=== PATIENT | female | born 1995 | race African-American/Black ===

== ENCOUNTER 2024-06-09 09:52 | Outpatient (REF) | payer MEDICAID, SELFPAY ==
[2024-06-09 14:23] LABS: MANUAL DIFF FLAG NO
[2024-06-09 14:33] LABS: Basophils Absolute Auto 0.1 X10*3/uL (0.0-0.2); Basophils Percent Auto 0.6 % (0-2); Eosinophils Absolute Auto 0.1 X10*3/uL (0.0-0.4); Eosinophils Percent Auto 1.1 % (0-4); Hematocrit 35.8 % (37.0-47.0); Hemoglobin 11.9 g/dl (12.0-16.0); Imm Gran Abs Auto 0.01 X10*3/uL (0.00-0.03); Imm Gran Pct Auto 0.1 % (0.0-0.4); Lymphocytes Absolute Auto 3.1 X10*3/uL (1.2-4.9); Mean Corpuscular HGB Conc 33.2 g/dl (31.0-35.0); Mean Corpuscular Hemoglobin 31.1 pg (27.0-33.0); Mean Corpuscular Volume 93.5 fL (80.0-98.0); Mean Platelet Volume 9.3 fL (9.4-12.3); Monocytes Absolute Auto 0.4 X10*3/uL (0.1-1.2); Monocytes Percent Auto 5.1 % (2-11); Neutrophils Absolute Auto 4.5 x10*3/uL (2.0-8.3); Neutrophils Percent Auto 55.1 % (45-73); Platelet Count 348 X10*3/uL (160-400); Red Blood Count 3.83 X10*6/uL (4.20-5.50); Red Cell Distribution Width 12.5 % (11.0-16.0); White Blood Count 8.2 X10*3/uL (4.8-10.8)
[2024-06-09 14:54] LABS: Alanine Aminotransferase 18 U/L (0-31); Albumin Level 4.3 g/dL (3.5-5.0); Alkaline Phosphatase 47 U/L (39-117); Anion Gap 10 (12-20); Aspartate Amino Transferase 18 U/L (5-31); Bilirubin Total 0.3 mg/dL (0.0-1.0); Blood Urea Nitrogen 13 mg/dL (9-16); Calcium 9.6 mg/dL (8.4-10.2); Carbon Dioxide 23 mmol/L (22-29); Chloride 111 mmol/L (96-108); Estimated Glomerular Filt Rate > 60; Glucose Random 87 mg/dL (60-115); Iron 53 mcg/dL (30-160); Percent Iron Saturation 20 % (15-50); Potassium 4.1 mmol/L (3.3-5.1); Sodium 140 mmol/L (135-145); Total Iron Binding Capacity 270 mcg/dL (228-428); Total Protein 6.8 g/dL (6.5-8.0); Unsaturated Iron Binding 217 ug/dL
[2024-06-10 08:03] LABS: Syphilis Screen Nonreactive (Nonreactive)
[2024-06-10 08:11] LABS: HIV AB/AG Nonreactive (Nonreactive); HIV Num 1 0.03 S/CO (0.00-0.99); ~HepC Num1 0.11 S/CO (0.00-0.79); ~Hepatitis C Antibody Nonreactive (Nonreactive)
== END 2024-06-09 09:53 | disposition home or self-care (01) ==
LOC: HO.CHCLDS 09:52
PROVIDERS: Visit Provider Family Medicine
DX: H91.90 Unspecified hearing loss, unspecified ear (principal)
CPT/HCPCS: 36415; 80053; 83540; 84443; 85025; 86780; 86803; 87389

== ENCOUNTER 2025-03-08 09:57 | Outpatient (REF) | payer MEDICAID, SELFPAY ==
--- OUTSIDE RECORDS SUMMARY | 2025-03-08 10:33 | XMS_ITS | Encounter Summary ---
Author Organization [employer] Address [address] [facility] [address] [place] [address] Care Team Providers Care Lead Caregiver Name Role Phone Angie Kilpatrick MD Primary Care Provider Reason for Visit * Reason Onset Date Comments Appointment Request 06/01/2024 Encounter Details Date Type Department Care Team ([facility] st Contact Info) Description 06/01/2024 Telephone [facility] [address] [place] [address] Angie Kilpatrick MD [address] [place] [address] Appointment Request Social History Tobacco Use Types Packs/Day Years Used Date Smoking Tobacco: Every Day Cigarettes Smokeless Tobacco: Never Alcohol Use Standard Drinks/Week Comments Defer 0 (1 standard drink = 0.6 oz pur e alcohol) Housing Stability Answer Date Recorded What is your housing situation today? I have pradeep jakub 06/16/[address] you li ve. Do you have problems with any of the following? No or not working smoke detectors 06/16/2023 Food Insecurity Answer Date Recorded Within the past 12 months, y ou worried that your food would run out before you got money to buy more: Never True 06/27/2023 Within the past 12 months,th e food you bought just didn't last and you didn't have enough money to get more: Never True Transportation Answer Date Recorded In the past 12 months, has l ack of transportation kept you from medical appts, meetings, work or from getting things needed for daily living? No 06/27/2023 Utilities Answer Date Recorded In the past 12 months, has t he electric, gas, oil or water company threatened to shut off services in your home? No 06/27/2023 Comments No Sex and Gender Information Value Date Recorded Sex Assigned at Female 07/09/2022 10:34 AM EDT Legal Sex Female 10:34 AM EDT Gender Identity Female 07/09/2022 10:34 AM EDT Sexual Orientation Straight 07/09/2022 10 :34 AM EDT documented as of this encounter Miscellaneous Notes * Telephone Encounter - Chio Zuniga MD - 06/16/2024 5:37 PM EDT Note signed * Telephone Encounter - Angie Kilpatrick MD - 06/12/2024 2:29 PM EDT Seen By * Telephone Encounter - Rosa Perry - 06/11/2024 4:41 PM EDT Please sign office notes from 06/03 in order to proceed with referral, thank you. * Telephone Encounter - Traivs Loya - 06/01/2024 2:44 PM EDT Tc from patient calling to cancel appt for 06/01 and would like a call back to reschedule documented in this encounter Plan of Treatment Not on file documented as of this encounter Visit Diagnoses Not on filedocumented in this encounter Care Teams Lead Caregiver Relationship Specialty Start Date End Date Angie Kilpatrick MD [address] [place] [id number] PCP - General Family Medicine 07/25/18 documented as of this encounter
[2025-03-08 15:19] LABS: HCG Quantitative 4 mIU/mL
== END 2025-03-08 09:58 | disposition home or self-care (01) ==
LOC: HO.CHCLDS 09:57
PROVIDERS: Visit Provider Student in an Organized Health Care Education/Training Program
DX: Z30.9 Encounter for contraceptive management, unspecified (principal)
CPT/HCPCS: 36415; 84702